=== PATIENT | female | born 1970 | race Caucasian/White ===

== ENCOUNTER 2025-08-10 12:29 | Emergency (ER) | payer OTHER, SELFPAY ==
[2025-08-10 12:30] VITALS: BP 138/72; PULSE 91; RESP 14; TEMP 36.1; O2SAT 97; BMI 34.1
--- NOTE | 2025-08-10 12:41 | ED.LOWEXIN ---
HPI - Extremity Injury (Lower) General Chief Complaint: Extremity Injury, Lower Stated Complaint: R leg pain, poss DVT- was on a plane yesterday Time Seen by Provider: 08/10/25 12:41 Mode of arrival: Wheelchair History of Present Illness HPI Narrative: Ms. Alejo Eldridge is a pleasant 55-year-old female with no reported past medical history, on hormone replacement therapy for menopause, who presents to the emergency department for concern of right leg pain. [facility] and just flew to [place]. Patient states that she broke her right lateral ankle and right great toe over a month ago. She has been using an orthopedic walking boot and crutches but she was given very unclear recommendations for these broken bones as she had very limited care in [place]. She has been having worsening swelling and pain of her lower leg and she had an ultrasound yesterday which revealed a DVT and she was started on Eliquis. The patient presents today primarily for continued pain of the right foot and concern that she does not fully understand what is going on with her right leg. No new injuries. No chest pain or shortness of breath. She is concerned because yesterday she had an extremely severe frontal headache that has since gone away but she does not deal with a history of headaches. Denies fevers, chills, chest pain, shortness of breath, vomiting, diarrhea. Her current prescriptions are Eliquis and hormone replacement therapy, estradiol. Related Data Previous Rx's ?Medication ?Instructions ?Recorded doxycycline hyclate 100 mg capsule 200 mg (2 x 100 mg) PO ONCE #2 caps 09/18/22 hydrocodone 5 mg-acetaminophen 325 1 tab PO Q4-6H PRN pain #12 tabs 08/10/25 mg tablet Allergies Allergy/AdvReac Type Severity Reaction Status Date / Time acetaminophen (From Percocet) AdvReac Intermediate Nausea Verified 08/10/25 12:33 oxycodone (From Percocet) AdvReac Intermediate Nausea Verified 08/10/25 12:33 Review of Systems Review of Systems ROS Unobtainable: All systems reviewed & are unremarkable except as noted in HPI and below Patient History Social History Smoking Status: Unknown if ever smoked Smoking Status: Unknown if ever smoked Exam Narrative Exam Narrative: GENERAL: 55 year old patient appears stated age. Well-developed patient, in no acute distress. HEAD: Atraumatic. Normocephalic. NECK: Trachea midline. Cervical ROM intact. CARDIOVASCULAR: Regular rate RESPIRATORY: ?Nonlabored respirations. ?Speaking in clear, full sentences. ? EXTREMITIES: Orthopedic boot and compression sock removed. Tenderness to palpation of base of right great toe. Mild calf tenderness with mild edema but calf is soft and compressible. No lateral or medial malleolar tenderness. No color change or open wounds. Palpable DP and PT pulse and brisk cap refill in the toes. No tenderness to palpation of the anterior conte or the knee. NEURO: AOx3. ?Clear speech. ? SKIN: No rash or erythema of visible areas Initial Vital Signs Initial Vital Signs: Vital Signs Temperature 96.9 F L 08/10/25 12:30 Pulse Rate 91 H 08/10/25 12:30 Respiratory Rate 14 08/10/25 12:30 Blood Pressure 138/72 08/10/25 12:30 Pulse Oximetry 97 08/10/25 12:30 Oxygen Delivery Method Room Air 08/10/25 12:30 Course Orders Ordered: ED Orders 08/10/25 12:56 CT head/brain wo con Stat US periph venous low extrem rt Stat XR ankle RT min 3V Stat XR foot RT min 3V Stat 08/10/25 16:02 Consult to STRATEGIC ACCOUNT MANAGER - Dewaxer Stat Discontinued Medications Hydrocodone Bitart/Acetaminophen (Hydrocodone/Acet 5/325 Tablet) 1 tab PO NOW ONE Stop: 08/10/25 12:57 Last Admin: 08/10/25 13:27 Dose: 1 tab Documented By: OSBALDO Vital Signs Vital signs: Vital Signs - 8 hr 08/10/25 12:30 08/10/25 16:54 08/10/25 17:06 Temperature 96.9 F L Pulse Rate 91 H 77 78 Respiratory Rate 14 18 Blood Pressure 138/72 127/69 127/69 Pulse Oximetry 97 98 99 Oxygen Delivery Method Room Air Room Air Room Air MDM - Extremity Injury (Lower) Medical Records Attestation: I reviewed the patient's medical records. MDM Narrative Medical decision making narrative: 55-year-old female with no reported past medical history, on hormone replacement therapy for menopause, who presents to the emergency department for concern of right leg pain. Differential diagnosis includes but isn't limited to ankle fracture, toe fracture, DVT, ICH, tension headache etc. On exam patient is in no acute distress, nontoxic appearing, vital signs appropriate. She has tenderness to palpation of the right great toe and calf. She is neurovascularly intact. We will obtain foot x-ray, ankle x-ray, venous ultrasound and CT head given patient's history of fractures, DVT and new headache with Eliquis. We will treat her right foot pain with [place] at this time. Ankle x-ray reveals no acute bony abnormality. 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 CT head is normal and vascular ultrasound reveals occlusive thrombus in the posterior tibial vein on the right. Printed discussed all imaging results with the patient. For her subacute fracture, recommended that she continue using the orthopedic boot, she is following up with the [facility] ortho tomorrow. Advised weight-bearing as tolerated. For her DVT recommended Eliquis 10 mg b.i.d. x7 days followed by 5 mg b.i.d. for at least 3 months. She already has this prescription. We did discuss stopping her hormone replacement therapy due to her current DVT. We discussed supportive care including rice therapy, elevation. Discussed strict ER return precautions. Patient verbalized understanding of all information is agreeable with the plan. She is stable for discharge home with her family members. Pain medicine sent to pharmacy of choice and risks of opioids discussed. Discharge Plan Departure Patient Disposition: Home Clinical Impression: DVT (deep venous thrombosis) Qualifiers: DVT location: lower extremity Affected thrombotic vein of extremity: tibial Chronicity: acute Laterality: right Qualified Code(s): I82.441 - Acute embolism and thrombosis of right tibial vein Closed fracture of great toe Qualifiers: Encounter type: initial encounter Phalanx: proximal Fracture alignment: nondisplaced Laterality: right Qualified Code(s): S92.414A - Nondisplaced fracture of proximal phalanx of right great toe, initial encounter for closed fracture Instructions: DI for Deep Vein Thrombosis Activity Restrictions/Additional Instructions: Dear Ms. Alejo Eldridge, Thank you for coming to the emergency department. Today your ultrasound revealed a blood clot in the posterior tibial vein in the right lower leg. The treatment for this is Eliquis 10 mg twice a day for 7 days followed by 5 mg twice a day for the following 3 months. I do recommend that you continue wearing the orthopedic boot for your right toe fracture. Please follow up with your orthopedic doctor tomorrow as scheduled. We do advise you stop taking your hormone replcement at this time. It is important that you do not take NSAIDs such as ibuprofen, Advil, Motrin, naproxen, Aleve, etc. while taking blood thinners. It is very important that you return to the ER immediately if you fall and hit your head or have any other trauma or bleeding concern. Return to the ER immediately if you have chest pain or shortness of breath. Please use RICE therapy for your pain in addition to acetaminophen. Rest the painful area. Ice the area of pain/swelling for at least 15 minutes, 4x a day. Compress the area of swelling using a brace, wrap, or splint if applied. Elevate the painful or swollen extremity by supporting it above the level of the heart with pillows when sitting or laying. You have been prescribed a short course of narcotic medications. These are potentially dangerous and addictive medications that should be used carefully. While on these medications you cannot drive or operate heavy machinery. Additionally, you cannot sign legal documents or perform any duties such as this. Many people get constipated on narcotic medications so it would be advisable to discuss stool softeners with the pharmacist when you fruit picker your prescription. Please understand that we cannot provide further refills of narcotics or controlled substances through the ED and your pain management will need to be through your Primary Care Provider Please follow up with your primary care doctor within the next 2-3 days for ER follow-up. (If you do not have a PCP you can call [phone]. ?to schedule an appointment with an [facility] Primary Care Provider) IF YOU DEVELOP ANY NEW OR WORSENING SYMPTOMS, RETURN TO THE ER! Please read the attached instructions, they highlight more specific treatments and interventions for you at home. Thank you for letting me participate in your care, Naima Velazquez PA-C Prescriptions: New hydrocodone-acetaminophen 5-325 mg tablet 1 tab PO Q4-6H PRN (Reason: pain) Qty: 12 0RF No Action doxycycline hyclate 100 mg capsule 200 mg PO ONCE Qty: 2 0RF Referrals: Miscellaneous,Doctor, [Primary Care Provider, Medical] Stand Alone Forms: Patient Portal/API
--- NOTE | 2025-08-10 12:56 | DI.US.S_ITS ---
PROCEDURE: US PERIPH VENOUS LOW EXTREM RT INDICATIONS: RLE pain/swelling; DVT TECHNIQUE: Real-time imaging, as well as color and pulse Doppler interrogation, were performed of the lower extremity deep veins from the inguinal ligament to the popliteal fossa, with documentation of the visualized calf veins. COMPARISON: None. FINDINGS: Occlusive thrombus in the posterior tibial vein on the right. The common femoral, femoral, popliteal, veins are normally compressible, and free of intraluminal thrombus. Color and pulse Doppler demonstrate normal phasic intraluminal flow. There is normal augmentation response to distal compression maneuver. IMPRESSION: Deep vein thrombosis Dictated by: Waldemar Jay M.D. on 08/10/2025 at 14:22 Approved by: Waldemar Jay M.D. on 08/10/2025 at 14:26
--- NOTE | 2025-08-10 12:56 | DI.CT.S_ITS ---
PROCEDURE: CT HEAD/BRAIN WO CON INDICATIONS: severe BOBO yesterday improved but new blood thinner rx TECHNIQUE: Noncontrast 4.5 mm thick angled axial sections acquired from the foramen magnum to the vertex, with coronal and sagittal reformats. For radiation dose reduction, the following was used: automated exposure control, adjustment of mA and/or kV according to patient size. COMPARISON: None. FINDINGS: Image quality: Diagnostic. CSF spaces: Basal cisterns are patent. No extra-axial fluid collections. Ventricles are normal in size and shape. Brain: No midline shift. No intracranial mass effect or hemorrhage. [place]- white matter interface is normal. Skull and face: Calvarium and visualized facial bones are intact, without suspicious lesions. Sinuses: Visualized sinuses and mastoids are clear. IMPRESSION: No acute intracranial pathology. Dictated by: Waldemar Jay M.D. on 08/10/2025 at 15:14 Approved by: Waldemar Jay M.D. on 08/10/2025 at 15:16
--- NOTE | 2025-08-10 12:56 | DI.RAD.S_ITS ---
PROCEDURE: XR FOOT RT MIN 3V INDICATIONS: Great toe pain; fx 1 month ago TECHNIQUE: 3 views of the foot were acquired. COMPARISON: None. FINDINGS: Bones: Moderately severe 1st MTP degenerative change. Possible subacute to chronic fracture of a lateral osteophyte off the base of the proximal phalanx of the great toe. Soft tissues: No tibiotalar joint effusion. Achilles tendon appears normal. IMPRESSION: Question subacute to chronic fracture of a lateral osteophyte off the base of the proximal phalanx of the great toe. 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 Dictated by: Patricio Gannon M.D. on 08/10/2025 at 14:05 Approved by: Patricio Gannon M.D. on 08/10/2025 at 14:15
--- NOTE | 2025-08-10 12:56 | DI.RAD.S_ITS ---
PROCEDURE: XR ANKLE RT MIN 3V INDICATIONS: lateral ankle pain; fx one month ago TECHNIQUE: 3 views of the ankle were acquired. COMPARISON: None. FINDINGS: Bones: No fractures or dislocations. Ankle mortise is normally aligned. No suspicious bony lesions. Soft tissues: No tibiotalar joint effusion. Achilles tendon appears normal. IMPRESSION: No acute bony abnormality or significant effusion. Dictated by: Patricio Gannon M.D. on 08/10/2025 at 14:16 Approved by: Patricio Gannon M.D. on 08/10/2025 at 14:16
[2025-08-10 16:54] VITALS: BP 127/69; PULSE 77; RESP 18; O2SAT 98
[2025-08-10 17:06] VITALS: BP 127/69; PULSE 78; O2SAT 99
--- NOTE | 2025-08-10 19:52 | CM.SWNOTE ---
ED SECURITY SYSTEM ANALYST Assessment Note: Pt is a 55yo female, resident of [place], is seen in the ED for a DVT. Pt lives in a house with her spouse, Major. Reviewed chart and discussed with multidisciplinary team pt's medical status and initial discharge needs. Per ED Provider, pt is medically cleared for dc home but requesting a PCP follow up. SECURITY SYSTEM ANALYST entered room to meet with patient, introduced self and role. Pt confirmed that she lives in [place] outside [place] and the other half of the year, she is in [place]. She states she has not had a PCP for many years and would like to establish at [facility]. She requests Dr. Kassidy Harrison because her family sees this Provider, she consents to any available provider for follow up if Dr. Harrison not available. SECURITY SYSTEM ANALYST calls [facility], spoke to chief controller tower. They state they will elevate request for PCP establishment to Roundhouse Supervisor. SECURITY SYSTEM ANALYST confirmed pt contact information in chart and requests pt to follow up with Clinic if no call has been made. Plan: Pt to discharge home with spouse to transport, pt to follow up with PCP as soon as possible. DAKOTAH Garcia
--- NOTE | 2025-08-11 11:53 | CM.SWNOTE ---
ED MAKE READY MECHANIC follow up Note MAKE READY MECHANIC reviews EMR and identifies patient's follow up PCP appts have been scheduled. MAKE READY MECHANIC calls patient and she endorses she was notified about upcoming appts and in agreement with follow ups, she states she has signed up for the patient portal as well. Lisandra Greer, LABORATORY TECHNICIAN
== END 2025-08-10 17:06 | disposition home or self-care (01) ==
PROVIDERS: Emergency Provider Physician Assistant
DX: I82.441 Acute embolism and thrombosis of right tibial vein (principal); S92.414A Nondisplaced fracture of proximal phalanx of right great toe, initial encounter for closed fracture; R51.9 Headache, unspecified
CPT/HCPCS: 70450; 73610; 73630; 93971; 99283